=== PATIENT | male | born 2000 | race Caucasian/White ===

== ENCOUNTER 2021-07-20 06:12 | Day surgery (SDC) | payer MEDICAID, SELFPAY ==
[~2021-07-20] VITALS: Ht 149.9 cm; Wt 0.5 kg
[2021-07-20] MEDS ORDERED: SEVOFLURANE 15 MIN GAS INH ONE (07:55)
[2021-07-20] MEDS ORDERED: PROPOFOL 200MG/ 20ML VIAL (DIPRIVAN) IV ONE (07:55)
[2021-07-20] MEDS ORDERED: NS IRRIG SOLN 1000 ML IR ONE (07:55)
[2021-07-20] MEDS ORDERED: fentaNYL CITRATE 250 MCG/5 ML AMP IV ONE (07:55)
[2021-07-20] MEDS ORDERED: ONDANSETRON HCL 4 MG/2 ML VIAL IVP ONE (07:55)
[2021-07-20] MEDS ORDERED: LR 1,000 ML IV.SOLN IV ONE (07:55)
[2021-07-20] MEDS ORDERED: MIDAZOLAM HCL 5 MG/5 ML VIAL IVP ONE (07:55)
[2021-07-20] MEDS ORDERED: DEXAMETHASONE SOD PHOSPHATE 4 MG/ML VIAL IVP ONE (07:55)
[2021-07-20] MEDS ORDERED: ONDANSETRON HCL 4 MG/2 ML VIAL IVP PRN ×2 (08:30→09:15)
[2021-07-20] MEDS ORDERED: MEPERIDINE HCL/PF 25 MG/ML DISP.SYRIN IVP PRN (08:30)
[2021-07-20] MEDS ORDERED: HYDROmorphone 1 MG/ML INJ. CARTRIDGE IVP PRN (08:30)
[2021-07-20] MEDS ORDERED: METOCLOPRAMIDE HCL 10 MG/2 ML VIAL IVP PRN (08:30)
[2021-07-20] MEDS ORDERED: LR 1,000 ML IV SCH (08:30)
[2021-07-20] MEDS ORDERED: KETOROLAC TROMETHAMINE 30 MG VIAL IVP PRN (08:30)
[2021-07-20] MEDS ORDERED: ACETAMINOPHEN 500 MG TABLET PO PRN (09:15)
[2021-07-20] MEDS ORDERED: ONDANSETRON 4 MG ODT TAB PO PRN (09:15)
[2021-07-20 10:11] VITALS: BP_SYST 118
== END 2021-07-20 10:50 | disposition home or self-care (01) ==
LOC: SDS 06:12 → SMU 06:16 → SDS 10:50
PROVIDERS: ATTEND Otolaryngology
DX: H65.493 Other chronic nonsuppurative otitis media, bilateral (principal); H69.93 Unspecified Eustachian tube disorder, bilateral; H90.2 Conductive hearing loss, unspecified; Z79.899 Other long term (current) drug therapy; Z20.822 Contact with and (suspected) exposure to COVID-19
CPT/HCPCS: 69436; J1100; J2250; J2405; J2704; J3010; J7120; L8699; U0003